=== PATIENT | female | born 2000 | race Caucasian/White ===

== ENCOUNTER → 2025-03-21 | Outpatient (CLI) | payer OTHER, SELFPAY ==
[2025-03-21 18:27] LABS: T3 Total - Triiodothyronine 1.04 ng/mL (0.80-2.00)
== END | disposition home or self-care (01) ==
LOC: MTLAB 15:54
PROVIDERS: PCP Nurse Practitioner Family; Referring Provider Dermatology Pediatric Dermatology; Visit Provider Dermatology Pediatric Dermatology
DX: E04.1 Nontoxic single thyroid nodule (principal)
CPT/HCPCS: 36415; 84439; 84443; 84480; 86376